=== PATIENT | male | born 1945 | race Caucasian/White ===

== ENCOUNTER 2017-05-18 20:02 | Emergency (ER) | payer MEDICARE, BC ==
[~2017-05-18] VITALS: Ht 167.6 cm; Wt 63.5 kg
[2017-05-18] MEDS ORDERED: ASPIRIN81 MG PO (23:21)
[2017-05-18] MEDS ORDERED: FOLGARD OS TAB1 EACH PO (23:23)
[2017-05-18] MEDS ORDERED: MIRALAX17 GM PO (23:24)
[2017-05-18] MEDS ORDERED: OSTERA TABLET1 EACH PO (23:25)
[2017-05-18] MEDS ORDERED: SYNTHROID200 MCG PO (23:26)
[2017-05-18] MEDS ORDERED: OXYBUTYNIN CHLO15 MG PO (23:27)
[2017-05-18] MEDS ORDERED: MOBIC15 MG PO (23:28)
[2017-05-18] MEDS ORDERED: AMANTADINE100 MG PO (23:28)
[2017-05-18] MEDS ORDERED: AZILECT1 MG PO (23:30)
[2017-05-18] MEDS ORDERED: SINEMET CR 25-11 TAB PO (23:31)
[2017-05-18] MEDS ORDERED: ARICEPT5 MG PO (23:32)
[2017-05-18] MEDS ORDERED: FLORINEF0.1 MG PO (23:33)
[2017-05-18] MEDS ORDERED: SINEMET CR 50-21 TAB PO (23:34)
[2017-05-18] MEDS ORDERED: VITAMIN B-625 MG PO (23:35)
[2017-05-18] MEDS ORDERED: MINOCYCLINE HC100 MG PO (23:36)
== END 2017-05-18 21:07 | disposition short-term general hospital (02) ==
LOC: ER 20:02
DX: N50.812 Left testicular pain (principal); N45.1 Epididymitis; G20 Parkinson's disease; Z79.899 Other long term (current) drug therapy; Z79.82 Long term (current) use of aspirin